=== PATIENT | female | born 1995 | race Hispanic/Latino ===

== ENCOUNTER 2017-10-22 09:50 | Emergency (ER) | payer MEDICAID ==
[2017-10-22] MEDS ORDERED: ASPIRIN 325 MG TABLET ONE (10:08)
[2017-10-22 10:41] LABS: BASOPHILS % (AUTO) 0.3 % (0.0-5.0); EOSINOPHILS % (AUTO) 0.4 % (0.0-8.0); HEMATOCRIT 37.9 % (36-48); LYMPHOCYTES % (AUTO) 20.9 % (21.0-51.0); MEAN CORPUSCULAR HEMOGLOBIN 27.5 pg (27.0-33.0); MEAN CORPUSCULAR HGB CONC 33.5 g/dL (32.0-36.0); MEAN CORPUSCULAR VOLUME 81.8 fL (79-99); MONOCYTES % (AUTO) 5.2 % (3.0-13.0); NEUTROPHILS % (AUTO) 73.2 % (40.0-77.0); PLATELET COUNT (AUTO) 190 K/uL (130-400); RED BLOOD CELL COUNT(AUTO) 4.63 MIL/uL (4.00-5.50); RED CELL DISTRIBUTION WIDTH 22.1 % (11.0-15.5); WHITE BLOOD COUNT (AUTO) 8.6 K/uL (4.8-10.8)
[2017-10-22 10:41] LABS: APPEARANCE,URINE CLEAR (CLEAR); BILIRUBIN,URINE NEGATIVE (NEGATIVE); COLOR,URINE YELLOW (YELLOW); GLUCOSE, URINE (UA) NEGATIVE (NEGATIVE); KETONES,URINE NEGATIVE (NEGATIVE); LEUKOCYTE ESTERASE ,URINE TRACE (NEGATIVE); NITRATE,URINE NEGATIVE (NEGATIVE); OCCULT BLOOD,URINE TRACE-INTACT (NEGATIVE); PH,URINE 8.5 (5.0-8.0); PROTEIN,URINE NEGATIVE (NEGATIVE); UROBILINOGEN,URINE 0.2 mg/dL (0.2-1.0)
[2017-10-22 10:46] LABS: HCG,QUAL RESULT NEGATIVE (NEGATIVE)
[2017-10-22 10:55] LABS: CREATININE 0.7 mg/dL (0.5-1.5)
[2017-10-22 11:05] LABS: ALBUMIN 4.2 g/dL (3.5-5.0); BILIRUBIN,TOTAL 0.4 mg/dL (0.2-1.0); TOTAL PROTEIN, SERUM 7.7 g/dL (6.0-8.3)
[2017-10-22 11:12] LABS: SQUAMOUS EPITHELIAL CELL,UR Moderate /HPF (0-2)
[2017-10-22 11:13] LABS: BACTERIA,URINE Few /HPF (None Seen)
== END 2017-10-22 12:33 | disposition home or self-care (01) ==
LOC: EDH 09:50
DX: K80.50 Calculus of bile duct without cholangitis or cholecystitis without obstruction (principal); R10.11 Right upper quadrant pain
CPT/HCPCS: 36415; 71046; 76705; 80053; 81001; 81025; 84484; 85025; 85378; 93005